=== PATIENT | male | born 1965 | race Caucasian/White ===

== ENCOUNTER 2017-04-30 15:55 | Inpatient (IN) | payer OTHER ==
[~2017-04-30] VITALS: Ht 177.8 cm; Wt 104.3 kg
--- NOTE | ~2017-04-30 | OR ---
Unit #: [id number] #: [id number] Patient: DEMETRIUS BAL [id number] [address] [address] [id number] [place] MR#: [id number] NAME: DEMETRIUS BAL ROOM: [facility] Date of Procedure: 05/02/2017 Admission Date: 04/30/2017 Surgeon: Thomas Wiley M.D. : 1965 Attending Physician: Markel Gómez M.D. Primary Care Physician: Markel Gómez M.D. OPERATIVE REPORT PREOPERATIVE DIAGNOSIS Acute cholecystitis. POSTOPERATIVE DIAGNOSIS Acute cholecystitis. PROCEDURE PERFORMED Laparoscopic cholecystectomy. FILM PAINTER Dr. Jackson. ANESTHESIA General anesthesia. ESTIMATED BLOOD LOSS Minimal. IV FLUIDS 800 crystalloid. COMPLICATIONS None. INDICATIONS FOR PROCEDURE The patient is a 51-year-old with acute cholecystitis. DESCRIPTION OF PROCEDURE The patient was taken to the operating theater and placed in supine position. General anesthesia was induced. The abdomen was prepped and draped. A 5-mm Optiview trocar was placed into the right upper quadrant without difficulty. The abdomen was insufflated to 15 mmHg with CO2. Under direct vision, I placed a subxiphoid 10 mm, right lateral 5 mm, umbilical 5 mm. General inspection of the abdomen reveled acute cholecystitis with multiple adhesions and distended swollen gallbladder. I thus decompressed the gallbladder using needle decompression setup, that allowed me to grasp the gallbladder and retracted up over the liver. I dissected down the adhesions. I dissected neck. I identified the cystic duct. Its junction with the gallbladder as well as the common bile duct was identified. It was thus skeletonized, doubly hemoclipped and divided. The cystic artery laid immediately posterior. This was skeletonized, doubly hemoclipped divided. The gallbladder was removed from the Unit #: [id number] #: [id number] Patient: DEMETRIUS BAL gallbladder bed with Bovie electrocautery and then delivered via the subxiphoid port. Hemostasis was adequate. I irrigated thoroughly with normal saline and aspirated all fluids dry. I removed the ports and closed the fascia with 0 Vicryl and skin with 4-0 Vicryl. The patient tolerated the procedure well and sent to the recovery room in good condition. Dictated by... Princess Rivas TD: 05/02/2017 13:13 JOB #: [id number] OPERATIVE REPORT Page 1 of 1 X Thomas Wiley MD PROCEDURE OPERATIVE NOTE
--- NOTE | ~2017-04-30 | HP ---
Unit #: [id number] #: [id number] Patient: DEMETRIUS BAL [id number] [address] [place], [place] [address] [id number] I MR#: [id number] NAME: DEMETRIUS BAL ROOM: 241 Age: 51 Sex: M Admission Date: 04/30/2017 : 1965 Attending Physician: Laura Ashby M.D. Primary Care Physician: Markel Gómez M.D. HISTORY AND PHYSICAL HISTORY OF PRESENT ILLNESS 51-year-old white male without any significant past medical history, unknown to me prior to admission though I am familiar with his . Presented himself to the emergency room on the date of admission with right lower quadrant/right flank pain that began that morning upon awakening. He had not eaten breakfast and had chili the night before, which was not unusual for the patient, at a local restaurant. He went to bed without any symptoms whatsoever. He has had no surgical history, no past medical history. After he began having abdominal pain, he had nausea and dry heaves but no vomiting. He had a normal bowel movement that morning. Arrived in the emergency room where he had a CBC that showed an elevated white count at 18.1 with a left shift. CMP and lipase were normal. Urinalysis normal. Lactic acid normal. CT scan of the abdomen and pelvis reportedly normal. The patient was admitted by my on-call physician, placed on IV fluids, IV antibiotics, IV proton pump inhibitors, pain medication, nausea medications. Seen by surgery this morning. Pain apparently completely resolved. He is scheduled for a gallbladder ultrasound. He had some right upper quadrant tenderness yesterday in the ER but it really doesn't sound like it is his gallbladder. Currently, he is awake, alert, oriented x3, in no acute distress. MEDICATIONS No meds. ALLERGIES Penicillin. PAST HISTORY No surgery. No prior admissions. SOCIAL HISTORY . Employed abatement worker. Nonsmoker, nondrinker. No street drug use. FAMILY HISTORY Noncontributory. PHYSICAL EXAMINATION GENERAL: Again, he is awake, alert, oriented x3, in no acute distress. VITAL SIGNS: Afebrile with a T-max overnight of 100.1. Currently, his pulse is 93, respirations 18, O2 sats 97% on room air. Last blood pressure was 163/92 but it has been persistently elevated since admission. HEENT: Unremarkable. NECK: Supple without JVD, bruits, adenopathy or thyromegaly. Unit #: [id number] #: [id number] Patient: DEMETRIUS BAL CHEST: Clear to auscultation. HEART: Regular rate and rhythm without any murmurs, rubs or gallops. ABDOMEN: Soft, nondistended, nontender with positive bowel sounds and no hepatosplenomegaly. EXTREMITIES: No clubbing, cyanosis or edema. /RECTAL: Deferred. NEUROLOGICAL: Grossly intact. DIAGNOSTIC STUDIES LABORATORY: CMP normal. Lipase normal. Urinalysis normal. Lactic acid normal. CBC shows a white count of 18.1 with a left shift. Repeat CMP this morning was completely within normal limits except for a calcium of 8.3. IMAGING: CT scan of the abdomen and pelvis reportedly normal. IMPRESSION 1. Right lower quadrant abdominal pain with nausea and dry heaves. 2. Leukocytosis. 3. Hypertension. 4. Obesity. PLAN Recheck CBC. Awake right upper quadrant ultrasounds. Leave NPO for now. IV fluids, IV antibiotics, IV proton pump inhibitors, IV Vasotec while NPO, p.r.n. for systolic above 160 or diastolic above 90. If patient's white count normalizes, he has no further pain and his right upper quadrant ultrasound is normal, he can be discharged home with a prescription for antihypertensives and follow up in the office. He is 51 and has not had a colon scope and this needs to be performed to rule out colonic pathology eventually as well. Dictated by Princess Nobles/thania TD: 05/01/2017 09:08 JOB #: [id number] HISTORY AND PHYSICAL Page 1 of 1 X Markel Gómez MD X HISTORY AND PHYSICAL
--- NOTE | ~2017-04-30 | EKG ---
PATIENT: DEMETRIUS BAL UNIT #: [id number] Ventricular Rate: 82 BPM Atrial Rate: 82 BPM P-R Interval: 174 ms QRS Duration: 90 ms Q-T Interval: 390 ms QTC Calculation(Bezet): 455 ms P [place]: 50 degrees Calculated R [place]: 28 degrees Calculated T [place]: 56 degrees Diagnosis Line: Normal sinus rhythm Diagnosis Line: Normal ECG Diagnosis Line: No previous ECGs available Diagnosis Line: Confirmed by KALYANI RITTER MD ([id number]) on 05/03/2017 Diagnosis Line: 11:37:15 PM INTERPRETING MD: STONE MARROQUIN
--- NOTE | ~2017-04-30 | US6 ---
[facility] A Service of [facility] RADIOLOGY TEXT RESULTS PATIENT: DEMETRIUS BAL LOCATION: C2 241 : [birth year] UNIT #: [id number] AGE: [address]: Markel Gómez MD SEX: M ORDER DR: [id number] [facility] [address] [facility]. [place], [place] [address] [id number] I MR#: [id number] Acc #: [id number] NAME: DEMETRIUS BAL : 1965 SEX: M STUDY DATE/TIME: 05/01/2017 8:54 UNIT: A ROOM: 241 STUDY DESCRIPTION: US Abdominal Limited Attending Physician: Laura Ashby M.D. Ordering Physician: Ibrahima Wilcox M.D. Primary Care Physician: Markel Gómez M.D. MEDICAL IMAGING REPORT This report is preliminary unless electronic signature is present EXAM Right upper quadrant abdominal ultrasound INDICATION Right upper quadrant abdominal pain since yesterday morning. PROCEDURE Marrufo-scale and Doppler imaging right upper quadrant of the abdomen. COMPARISON 04/30/2017. FINDINGS Pancreas is obscured and not well seen on the study. Liver measures 19.5 cm has slightly increased echotexture. No liver mass is seen on submitted images. Right kidney measures 12.3 cm and is unremarkable. There are small stones seen in the gallbladder. Gallbladder wall thickening up to 9 mm. Common duct measures 2 mm. IMPRESSION 1. Small stones in the gallbladder. Gallbladder wall thickening up to 9 mm suspicious for acute cholecystitis. 2. Hepatic steatosis with borderline hepatomegaly. Dictated by... Edwin Barnett M.D. THIS IS AN ELECTRONICALLY VERIFIED REPORT Edwin Barnett M.D. at 05/02/2017 8:14 AM LISA/kylah TD: 05/01/2017 09:28 [facility] A Service [facility] RADIOLOGY TEXT RESULTS PATIENT: DEMETRIUS BAL LOCATION: [facility] : 61 UNIT #: [id number] AGE: [address]: Markel Gómez MD SEX: M ORDER DR: JOB #: [id number] MEDICAL IMAGING REPORT Page 1 of 1 COPY
--- NOTE | ~2017-04-30 | CO ---
Unit #: [id number] #: [id number] Patient: DEMETRIUS BAL [id number] [address] [place], [place] [address] [id number] I MR#: [id number] NAME: DEMETRIUS BAL ROOM: 241 Age: 51 Sex: M Admission Date: 04/30/2017 : 1965 Attending Physician: Laura Ashby M.D. Primary Care Physician: Markel Gómez M.D. Consultation Date: 05/01/2017 CONSULTATION REPORT HISTORY OF PRESENT ILLNESS Mr. Bal is a 51-year-old, white male, obese, who is a nondiabetic, no alcohol abuse, nonsmoker, who developed 24 hour history of right upper quadrant pain, right flank discomfort and nausea. He said, however, his symptoms have resolved in the last few hours. He did a CT scan in the emergency room, which was normal. He is afebrile. DIAGNOSTIC STUDIES LABORATORY RESULTS: In the emergency room also was normal with normal liver function tests. PHYSICAL EXAMINATION His abdomen is soft and nontender. No peritoneal signs. ALLERGIES He is allergic to penicillin. MEDICATIONS He has no significant home medications. IMPRESSION The patient could have had biliary colic or he could have just had a small renal stone, which he passed fairly quickly. An ultrasound has been ordered this morning. If it is negative, I am going to feed the patient regular food. If it is positive, then we will need to discuss whether or not the patient wants to go ahead and undergo cholecystectomy. Risks have been explained to the patient. He understands. Dictated by... Ibrahima Wilcox M.D. JOSE MARTIN/emery TD: 05/01/2017 06:37 JOB #: [id number] Unit #: [id number] #: [id number] Patient: DEMETRIUS BAL CONSULTATION REPORT Page 1 of 1 X Ibrahima Wilcox MD X CONSULTATION REPORT
--- NOTE | ~2017-04-30 | DS ---
Unit #: [id number] #: [id number] Patient: DEMETRIUS BAL [id number] [address] [place], [place] [address] [id number] I MR#: [id number] NAME: DEMETRIUS BAL ROOM: 241 Age: 51 Sex: M Admission Date: 04/30/2017 : 1965 Discharge Date: 05/03/2017 Attending Physician: Markel Gómez M.D. Primary Care Physician: Markel Gómez M.D. DISCHARGE SUMMARY PRINCIPAL DISCHARGE DIAGNOSES 1. Acute cholecystitis/cholelithiasis, status post laparoscopic cholecystectomy on 05/02/17. 2. Hepatic steatosis with borderline hepatomegaly. 3. Obesity. 4. Possible underlying hypertension. 5. Elevated liver function tests postop. PROCEDURES Laparoscopic cholecystectomy on 05/02/17. CONSULTANTS Dr. Wilcox - [facility]. REASON FOR HOSPITALIZATION The patient is a 51-year-old white male without any significant past medical history who presented on the day of admission with right lower quadrant, right upper quadrant, right flank pain that began in the morning. He had nausea and dry heaves but no vomiting. He had no surgical history, no fever. White count was only 18.1. CMP and lipase were normal. Urinalysis normal. Lactic acid normal. CT scan of the abdomen and pelvis was apparently normal but there is still no official report in the computer. In any case, the patient was admitted. He was made NPO, started on IV fluids. Repeat labs ordered. Gallbladder ultrasound was ordered. [facility] were consulted. The patient underwent gallbladder ultrasound on the showing small stones with gallbladder wall thickening up to 9 mm suspicious for acute cholecystitis. There was also noted hepatic steatosis and borderline hepatomegaly. His blood pressure was somewhat elevated on admission, treated with p.r.n. Vasotec IV because he was NPO. Seems to have come down. He eventually underwent laparoscopic cholecystectomy on the , tolerated well, tolerating a regular diet, afebrile. Vital signs stable. Blood pressure has improved. Room air O2 sat 96%. His white count is down to 11.8. His CMP this morning is normal except for an AST of 85 and ALT of 99 and an alk. phos. of 100. Path is currently pending. Patient appears to be stable for discharge. Repeat his liver functions in the office when he follows up. He is on a regular diet. He was given a prescription from Dr. Wilcox for Lortab 7.5/325, one q.4 hours p.r.n. for pain. He is to follow up with Dr. Wiley in the office in one week and follow up with me in one week at which time, again, will repeat his LFTs. Unit #: [id number] #: [id number] Patient: DEMETRIUS BAL Dictated by... Princess Nobles/thania TD: 05/06/2017 07:23 JOB #: [id number] DISCHARGE SUMMARY Page 1 of 1 X Markel Gómez MD X DISCHARGE SUMMARY
[~2017-04-30 15:55] MED LIST: ERY-TAB500 MG PO
[2017-04-30 17:56] LABS: BASOPHIL# 0.1 X10e3 (0-0.3); BASOPHIL% 0.3 % (0-2.5); HEMOGLOBIN 15.3 gm/dL (13.0-16.0); LYMPHOCYTE# 1.1 X10e3 (1.0-3.5); LYMPHOCYTE% 6.3 % (17.0-45.0); MEAN CELL VOLUME 87.3 FL (83-96); MEAN CORPUSCULAR HEMOGLOBIN 28.5 PG (28-34); MEAN CORPUSCULAR HGB CONC 32.6 g/dL (30-36); MEAN PLATELET VOLUME 8.9 FL (6.5-11.5); MONOCYTE# 1.1 X10e3 (0-1.0); MONOCYTE% 6.1 % (3.0-12.0); NEUTROPHIL# 15.8 X10e3 (1.5-7.1); NEUTROPHIL% 87.3 % (40-75); PLATELET COUNT 276 X10e3 (140-420); RED BLOOD COUNT 5.38 X10e (3.90-5.60); RED CELL DISTRIBUTION WIDTH 13.6 % (11.0-15.5); WHITE BLOOD COUNT 18.1 X10e3 (4.0-10.5)
[2017-04-30 17:57] LABS: DIFF IND YES
[2017-04-30 18:06] LABS: ALBUMIN SERUM 4.2 g/dL (3.5-5.0); BILIRUBIN, DIRECT 0.1 mg/dL (0.0-0.2); BILIRUBIN,INDIRECT 0.4 mg/dL (0.0-0.9); BILIRUBIN,TOTAL 0.5 mg/dL (0.2-2.0); BUN/CREATININE RATIO 18.75; CALCIUM SERUM 9.1 mg/dL (8.4-10.2); CREATININE SERUM 0.8 mg/dL (0.6-1.4); POTASSIUM 4.1 mmol/L (3.5-5.1); PROTEIN TOTAL SERUM 7.5 g/dL (6.0-8.3)
[2017-04-30 18:13] LABS: PLATELET ESTIMATE NORMAL (NORMAL); RBC NORMAL YES
[2017-04-30 20:51] LABS: URINE SOURCE CLEAN CATCH
[2017-04-30 21:05] LABS: URINE APPEARANCE CLEAR; URINE BILIRUBIN NEG (NEG); URINE BLOOD NEG (NEG); URINE COLOR YELLOW; URINE GLUCOSE NEG (NEG); URINE KETONE NEG (NEG); URINE LEUKOCYTE ESTERASE NEG (NEG); URINE NITRATE NEG (NEG); URINE PROTEIN NEG (NEG); URINE SPECIFIC GRAVITY 1.052 (1.003-1.035); URINE UROBILINOGEN 0.2 MG/DL (NEG)
[2017-04-30 21:13] LABS: CULTURE INDICATED? NO
[2017-04-30] MEDS ORDERED: NO MEDICATIONS (22:09)
[2017-05-01 06:07] LABS: ALBUMIN SERUM 3.5 g/dL (3.5-5.0); BILIRUBIN,TOTAL 0.9 mg/dL (0.2-2.0); BUN/CREATININE RATIO 17.14; CALCIUM SERUM 8.3 mg/dL (8.4-10.2); CREATININE SERUM 0.7 mg/dL (0.6-1.4); GLOM FILT RATE Estimated 107.8 mL/min (>60); POTASSIUM 3.9 mmol/L (3.5-5.1); PROTEIN TOTAL SERUM 6.8 g/dL (6.0-8.3)
[2017-05-01 09:12] LABS: HEMATOCRIT 44.3 % (38.0-50.0); HEMOGLOBIN 14.7 gm/dL (13.0-16.0); MEAN CELL VOLUME 87.1 FL (83-96); MEAN CORPUSCULAR HEMOGLOBIN 28.8 PG (28-34); MEAN CORPUSCULAR HGB CONC 33.1 g/dL (30-36); MEAN PLATELET VOLUME 8.4 FL (6.5-11.5); RED BLOOD COUNT 5.09 X10e (3.90-5.60); RED CELL DISTRIBUTION WIDTH 14.2 % (11.0-15.5); WHITE BLOOD COUNT 14.1 X10e3 (4.0-10.5)
[2017-05-02 06:06] LABS: HEMATOCRIT 44.1 % (38.0-50.0); HEMOGLOBIN 14.5 gm/dL (13.0-16.0); MEAN CELL VOLUME 87.5 FL (83-96); MEAN CORPUSCULAR HEMOGLOBIN 28.7 PG (28-34); MEAN CORPUSCULAR HGB CONC 32.8 g/dL (30-36); MEAN PLATELET VOLUME 8.3 FL (6.5-11.5); RED BLOOD COUNT 5.04 X10e (3.90-5.60); RED CELL DISTRIBUTION WIDTH 13.9 % (11.0-15.5)
[2017-05-03 05:25] LABS: HEMATOCRIT 40.4 % (38.0-50.0); HEMOGLOBIN 13.4 gm/dL (13.0-16.0); MEAN CELL VOLUME 86.7 FL (83-96); MEAN CORPUSCULAR HEMOGLOBIN 28.9 PG (28-34); MEAN CORPUSCULAR HGB CONC 33.3 g/dL (30-36); MEAN PLATELET VOLUME 8.1 FL (6.5-11.5); RED BLOOD COUNT 4.66 X10e (3.90-5.60); RED CELL DISTRIBUTION WIDTH 13.9 % (11.0-15.5); WHITE BLOOD COUNT 11.8 X10e3 (4.0-10.5)
[2017-05-03 06:04] LABS: BILIRUBIN,TOTAL 0.9 mg/dL (0.2-2.0); BUN/CREATININE RATIO 18.75; CALCIUM SERUM 8.4 mg/dL (8.4-10.2); CREATININE SERUM 0.8 mg/dL (0.6-1.4); POTASSIUM 4.2 mmol/L (3.5-5.1); PROTEIN TOTAL SERUM 6.4 g/dL (6.0-8.3)
[2017-05-03] MEDS ORDERED: LORTAB 7.5-3251 EACH PO (07:49)
== END 2017-05-03 09:14 | disposition home or self-care (01) | DRG 419 ==
LOC: CED 15:55 → CEDOF 22:56 → C2A 22:56 → CED 22:56 → C2A 22:56 → CED 23:09 → CEDOF 23:09 → C2A 23:45 → CEDOF 23:45 → C2A 05-03 09:14
PROVIDERS: Emergency Medicine; Internal Medicine; Surgery
PROC: 0FT44ZZ Resection of Gallbladder, Percutaneous Endoscopic Approach (ICD-10-PCS; principal; 2017-05-02 14:30)
DX: K80.00 Calculus of gallbladder with acute cholecystitis without obstruction (principal); K76.0 Fatty (change of) liver, not elsewhere classified; I10 Essential (primary) hypertension; E66.9 Obesity, unspecified; R94.5 Abnormal results of liver function studies; Z88.0 Allergy status to penicillin; D72.829 Elevated white blood cell count, unspecified; Z68.32 Body mass index [BMI] 32.0-32.9, adult
CPT/HCPCS: 36415; 74177; 76705; 80048; 80053; 80076; 81003; 83605; 83690; 85025; 85027; 88304; 93005; 96374; 96375; 99285; C9113; J0330; J1170; J1650; J1885; J1956; J2250; J2270; J2370; J2405; J2710; J3010; Q9967